=== PATIENT | male | born 1965 ===

== ENCOUNTER 2017-08-13 11:24 | Emergency (ER) | payer MEDICAID, OTHER ==
--- NOTE | 2017-08-13 12:05 | C.PDOC ---
History Of Present Illness <Brooklynn Avina - Last Filed: 08/13/17 19:04> <Caleb Goodwin - Last Filed: 08/13/17 20:31> 51 y/o male with PMHx of herniated discs brought in by ambulance for evaluation of acute exacerbation of chronic lower back pain since 08/03/17. Patient reports having herniated discs for many years and is s/p spinal tap in 2015 to drain fluid. Today patient complains of lower back pain radiating to the bilateral groin. States he normally has intermittent back pain, but current episode has been progressively worsening for the past 4-5 days. He awoke today with new onset of complete numbness to the bilateral lower legs from the waist down. Reports he poked himself with a needle and I dont feel a thing. Patient has no sensation of bladder fullness. States he is unable to move, sit up, or walk due to severe pain. Otherwise patient denies recent trauma. He tried taking Tylenol and using OTC topical pain patch, with no improvement. EXAM MOD DIST NONTOXIC BACK NO FOCAL TEND ATRAUM. LIMITED ROM DUE TO SEVERE PAIN EXT ATRAUM NEURO LIMITED DUE TO PAIN. +B/L PATELLA REFLEX. NO FOCLA MOTOR DEF RECTAL +FIRM RECTAL TONE, NO GROSS PARESTHESIA MDM ACUTE ON CHRONIC LUMBAR RADICULOPATHY, NEW ONSET PARESTHESIA AND POSSIBLE BLADDER RETENTION. RO CORD COMPRESSION. ps prev TOLERATED MRI WO DIFF (Brooklynn Avina) History Per: Patient History/Exam Limitations: no limitations Onset/Duration Of Symptoms: Days Current Symptoms Are (Timing): Worse Previous Symptoms: Back Pain (herniatic discs) Associated Symptoms: New Weakness, New Numbness Additional History Per: EMS <Brooklynn Avina - Last Filed: 08/13/17 19:04> <Caleb Goodwin - Last Filed: 08/13/17 20:31> Time Seen by Provider: 08/13/17 11:43 Chief Complaint (Nursing): Weakness/Neurological Deficit Past Medical History Reviewed: Historical Data, Nursing Documentation, Vital Signs - Medical History PMH: Arthritis, HTN, Migraine Denies: Chronic Kidney Disease Family History: States: Unknown Family Hx - Social History Hx Tobacco Use: No Hx Alcohol Use: No Hx Substance Use: No - Immunization History Hx Tetanus Toxoid Vaccination: Yes Hx Influenza Vaccination: Yes Hx Pneumococcal Vaccination: Yes <Brooklynn Avina - Last Filed: 08/13/17 19:04> Vital Signs: Last Vital Signs Temp 98.2 F 08/13/17 19:59 Pulse 62 08/13/17 19:59 Resp 18 08/13/17 19:59 BP 113/51 L 08/13/17 19:59 Pulse Ox 100 08/13/17 19:59 - [facility] Procedures CYSTOMETROGRAM (09/08/14) CYSTOSCOPY NEC (09/08/14) Review Of Systems Except As Marked, All Systems Reviewed And Found Negative. Genitourinary: Negative for: Incontinence, Other (bladder fullness) Musculoskeletal: Positive for: Back Pain, Leg Pain Neurological: Positive for: Weakness (due to severe pain), Numbness (to bilateral legs from the waist down) <Brooklynn Avina Last Filed: 08/13/17 19:04> Physical Exam - Physical Exam Appears: Non-toxic, In Acute Distress (moderate) Skin: Normal Color, Warm, Dry Head: Atraumatic, Normacephalic Eye(s): bilateral: Normal Inspection, PERRL, EOMI Nose: Normal Oral Mucosa: Moist Neck: Normal ROM, No Midline Cervical Tenderness, No Paracervical Tenderness, Supple Chest: Symmetrical, No Deformity, No Tenderness Cardiovascular: Rhythm Regular, No Murmur Respiratory: Normal Breath Sounds, No Rales, No Rhonchi, No Wheezing Gastrointestinal/Abdominal: Soft, No Tenderness Rectal: Rectal Tone (+Firm rectal tone), Other (No gross paresthesia) Back: No Vertebral Tenderness (No focal tenderness), Decreased ROM (Limited ROM due to severe pain) Extremity: No Normal ROM (Limited due to pain), No Tenderness, No Deformity, No Swelling, Other (No evidence of trauma) Pulses: Left Dorsalis Pedis: Normal, Right Dorsalis Pedis: Normal Neurological/Psych: Oriented x3, Normal Speech, Normal Cranial Nerves (2-12 intact), Normal Reflexes (+ bilateral patella reflex), Other (No focal motor deficits) <Brooklynn Avina Last Filed: 08/13/17 19:04> ED Course And Treatment - Laboratory Results Result Diagrams: 08/13/17 12:51 08/13/17 12:51 O2 Sat by Pulse Oximetry: 97 (RA) Pulse Ox Interpretation: Normal - Other Rad XR LS SPINE X-Ray: Interpreted by Me, Viewed By Me Interpretation: No acute fracture or bony deformity - CT Scan/US CT Lumbar Spine Other Rad Studies (CT/US): Read By Radiologist, Radiology Report Reviewed CT/US Interpretation: Accession No. : [id number]. Patient Name / ID : OSIRIS SILVA / [id number]. Exam Date : 08/13/2017 15:23:48 ( Approved ). Study Comment : Sex / Age : M / 51Y. Creator : Kiera Esquivel. Dictator : Tony Givens MD. Fruit Inspector : Printed Circuit Designer : Tony Givens MD. Approver2 : Report Date : 08/13/2017 15:43:46. My Comment : . PROCEDURE: CT Lumbar Spine without contrast. HISTORY: SPINAL PAIN RO CORD COMPRESSION. COMPARISON: Lumbar spine MRI 09/08/2014. TECHNIQUE: Axial computed tomography images were obtained of the lumbar spine without the use of intravenous contrast. Coronal and sagittal reformatted images were created and reviewed. Radiation dose: Total exam DLP = 1634.42 mGy-cm. This CT exam was performed using one or more of the following dose reduction techniques: Automated exposure control, adjustment of the mA and/or kV according to patient size, and/or use of iterative reconstruction technique. FINDINGS: VERTEBRAE: Normal lordotic curvature is preserved. There is no fracture or spondylolisthesis appreciated. No destructive bony lesion either. Multilevel facet arthropathy appears mild, concentrated at the inferior lumbar spine. Vertebral body and disc interspace heights are normal with exception of L4-5 and L5-S1 discs which are mildly diminished in height. CT appearance of the prevertebral paraspinal soft tissues diffusely unremarkable. DISCS/SPINAL CANAL /NEURAL FORAMINA: L1-2: Limited generalized disc bulging encroaches lateral recesses mildly without significant generalized central canal stenosis occurring. No neural foraminal stenosis either. L2-3: Mild generalized disc bulging flattens the ventral thecal sac and causes some mild central canal stenosis in the interval without significant neural foramina stenosis bilaterally. L3-4: There is now niyn-gw-njldsngn central canal stenosis due to increased generalized disc bulging and facet arthropathy symmetrically. Mild bilateral neural foraminal stenosis also occurs in the interval. L4-5: There is further increased disc bulging at this level with a small central disc herniation combined with facet joint degenerative changes to result in a severe central canal stenosis and moderate bilateral neural foraminal stenoses. L5-S1 : Limited disc bulging is appreciated without generalized central canal stenosis resulting. Combination of facet joint degenerative changes with disc bulge however results in mild bilateral neural foraminal stenoses. PARASPINAL SOFT TISSUES: Unremarkable. OTHER FINDINGS: None. IMPRESSION: 1. Interval severe stenosis L4-5 caused by a small central disc herniation overlying increasing disc bulging and facet joint degenerative arthropathy. 2. Mild-to- moderate L3-4 central stenosis caused by increasing disc bulging and facet joint degenerative arthropathy without obvious disc herniation. 3. Multilevel neural foraminal stenoses mildly increased in the interval with new but mild central stenosis identified at L2-3. CT Thoracic Spine Other Rad Studies (CT/US): Read By Radiologist, Radiology Report Reviewed CT/US Interpretation: Accession No. : [id number]. Patient Name / ID : OSIRIS SILVA / [id number]. Exam Date : 08/13/2017 15:19:45 ( Approved ). Study Comment : Sex / Age : M / 51Y. Creator : Kiear Esquivel. Dictator : Tony Givens MD. Fruit Inspector : Printed Circuit Designer : Tony Givens MD. Approver2 : Report Date : 08/13/2017 15:43:52. My Comment : . PROCEDURE: CT Thoracic Spine without contrast. HISTORY: BACK PAIN RO CORD COMPRESSION. COMPARISON: Thoracic spine MRI 08/31/2014. TECHNIQUE: Axial computed tomography images were obtained of the thoracic spine without intravenous contrast. Coronal and sagittal reformatted images were created and reviewed. Radiation dose: Total exam DLP = 1565.36 mGy-cm. This CT exam was performed using one or more of the following dose reduction techniques: Automated exposure control, adjustment of the mA and/or kV according to patient size, and/ or use of iterative reconstruction technique. FINDINGS: VERTEBRAE: Normal thoracic curvature with mild multilevel thoracic spondylosis. Minimal anterior wedging of T11 and T12 may indicate some element of potential anterior wedge compression fracture though likely chronic compare to prior thoracic spine MRI 08/31/2014. No destructive lesion identified throughout the thoracic spine. DISCS/SPINAL CANAL/NEURAL FORAMINA: There is no high-grade bony central canal stenosis appreciated. Similarly, the neural foramina appear adequately patent as far as cortical bony margins are concerned. Evaluation of soft tissues is far worse more superior in MRI than CT. No gross disc herniation is appreciable by standard CT criteria. Incidental note is made of variable limited mid cervical neural foraminal stenoses on degenerative basis at the mid to inferior cervical spine bilaterally. PARASPINAL SOFT TISSUES: Prevertebral paraspinal soft tissues appear diffusely unremarkable.. OTHER FINDINGS: Unremarkable. IMPRESSION: No high-grade bony central canal or neural foraminal stenosis throughout the thoracic spine or definite spondylolisthesis. Minimal possible chronic anterior wedge compression fractures of T11 and T12. <Brooklynn Avina - Last Filed: 08/13/17 19:04> - Laboratory Results Result Diagrams: 08/13/17 12:51 08/13/17 12:51 <Caleb Goodwin - Last Filed: 08/13/17 20:31> Progress - Data Reviewed Data Reviewed: Lab, Diagnostic imaging, Old records - Continuity of Care Discussed patient case with:: Patient, On-call PMD-pt unassigned Discussed pt. case with career development consultant/specialty: Neurological Surgery, Neurology <Brooklynn Avina - Last Filed: 08/13/17 19:04> <Caleb Goodwin - Last Filed: 08/13/17 20:31> - Re-Evaluation Re-evaluation Note: 08/13/17 12:42 BLADDER SCAN AVG 140 CC. PT REQUESTING THOMAS 08/13/17 14:02 PS NOW HO CLAUSTROPHOBIA. PT DENIED THIS DURING INITIAL EVALUATION. PT AGREES FOR MRI W ATIVAN. LAYING ON LEFT SIDE, LIMITED ROM. HOLD DILAUDID PENDING MRI. 08/13/17 15:03 INFORMED BY MRI THAT PT DOES NOT FIT MACHINE. UNABLE TO PERFORM TEST. WILL CT 08/13/17 15:07 D/W DR AMARAL NEURO LOG MANAGER AWARE OF ER FINDINGS. RECOMMENDS CT THORACIC, LUMBAR SPINE , DEXAMETHASONE 10 MG TID. 08/13/17 16:25 ct report reviewed, d/w dr amaral 08/13/17 16:34 PER PAIN, EXAM UNCH FROM INITIAL. VSS. D/W DR MEJIA AWARE OF ER FINDINGS. REQUESTS D/W NEUROSURG LOG MANAGER PRIOR TO DISPO. PENDING CALLBACK DR RUIZ NEUROSURG LOG MANAGER 08/13/17 16:54 D/W DR RUIZ STATES DOES NOT RECOMMEND ADMISSION @ [facility], UNABLE TO MANAGE WITHOUT MRI. NEEDS TRANSFER TO FACILITY W OPEN MRI. 08/13/17 17:23 SP UO 200 CC, 60 CC RESIDUAL 08/13/17 17:34 - D/W VIOLA Encarnacion.Rossi @ [facility] ER. STATES NO PRIOR RECORD OF PT @ [place], FACILITY DOES NOT HAVE OPEN MRI - NO OPEN MRI [facility], [facility] D/W DR WRIGHT ER ADMIN AWARE OF ER FINDINGS 08/13/17 18:18 SP CALEB AMARAL, STATES WILL D/W DR RUIZ 08/13/17 19:[address] AMARAL, ACCEPTED BY DR GARCIA FOR TRANSFER TO [place]. PER RYLAN TAPIA, NO KETAMINE GIVEN. PT STABLE ON L LAT POSITION (Brooklynn Avina) Signed over @7pm, pending transfer for Cauda equina syndrome. Patient examined: Morbidly obese and in NAD @1930: Patient c/o pain, given Morphine @20:00- given Decadron Transferred papaer work completed @2024: ALS picked up patient for transfer (Caleb Goodwin) Medical Decision Making <Brooklynn Avina - Last Filed: 08/13/17 19:04> <Caleb Goodwin - Last Filed: 08/13/17 20:31> Medical Decision Making: Initial Impression: Acute on chronic lumbar radiculopathy, new-onset paresthesia and possible bladder retention, r/o cord compression Time: 12:06 Initial Plan: --CMP --UDS --CBC --PTT --PT --X-ray lumbar spine --MRI Lumbar Spine --Decadron 10 mg IVP --Dilaudid 0.5 mg IVP --Neurontin 300 mg PO --Toradol 30 mg IVP --Zofran 8 mg IVP (Brooklynn Avina) Disposition Counseled Patient/Family Regarding: Studies Performed, Diagnosis - Disposition Disposition Time: 19:00 <Brooklynn Avina - Last Filed: 08/13/17 19:04> <Caleb Goodwin - Last Filed: 08/13/17 20:31> - Disposition Disposition: Trans to Other Acute Care Hosp Condition: STABLE Forms: [employer] (Ukrainian) - Clinical Impression Clinical Impression: Paresthesia of both lower extremities, Spinal stenosis, Lumbar herniated disc - Scribe Statement The provider has reviewed the documentation as recorded by the Scribe (Shelby Stroud) <Brooklynn Avina - Last Filed: 08/13/17 19:04> <Caleb Goodwin - Last Filed: 08/13/17 20:31> - Scribe Statement Provider Attestation: All medical record entries made by the Scribe were at my direction and personally dictated by me. I have reviewed the chart and agree that the record accurately reflects my personal performance of the history, physical exam, medical decision making, and the department course for this patient. I have also personally directed, reviewed, and agree with the discharge instructions and disposition. (Brooklynn Avina) Physician Patient Turnover Patient Signed Over To: Caleb Goodwin Handoff Comments: fu dispo <Brooklynn Avina - Last Filed: 08/13/17 19:04>
[2017-08-13] MEDS ORDERED: HYDROmorphone 0.5 mg/0.5 ml ISec IVP STA (12:06)
[2017-08-13 12:58] LABS: BASO % 0.7 % (0.0-2.0); EOS # 0.2 K/uL (0.0-0.7); EOS % 3.8 % (0.0-4.0); HEMOGLOBIN 15.1 g/dL (12.0-18.0); LYMPH # 1.2 K/uL (1.0-4.3); LYMPH % 20.8 % (20.0-40.0); MEAN CELL VOLUME 93.5 fL (80.0-94.0); MEAN CORPUSCULAR HEMOGLOBIN 32.5 pg (27.0-31.0); MEAN CORPUSCULAR HGB CONC 34.8 g/dL (33.0-37.0); MEAN PLATELET VOLUME 7.4 fL (7.2-11.7); MONO # 0.5 K/uL (0.0-0.8); MONO % 8.1 % (0.0-10.0); NEUT # 3.9 K/uL (1.8-7.0); NEUT % 66.6 % (50.0-75.0); NRBC % 0.1 % (0.0-2.0); RBC 4.66 Mil/uL (4.40-5.90); RED CELL DISTRIBUTION WIDTH 13.8 % (11.5-14.5); WHITE BLOOD COUNT 5.8 K/uL (4.8-10.8)
[2017-08-13 13:06] LABS: INR 1.1; PROTHROMBIN TIME 11.5 SECONDS (9.7-12.2)
[2017-08-13 13:22] LABS: ALB/GLOB RATIO 1.2 (1.0-2.1); ALBUMIN 4.6 g/dL (3.5-5.0); ALT/SGPT 41 U/L (21-72); AST/SGOT 65 U/L (17-59); BLOOD UREA NITROGEN 20 mg/dL (9-20); CALCIUM 9.5 mg/dl (8.6-10.4); GFR AFRICAN-AMERICAN > 60; GFR NON-AFRICAN AMERICAN > 60
[2017-08-13 14:34] LABS: BARBITURATES, UR NEGATIVE (NEGATIVE); BENZODIAZEPINES, UR NEGATIVE (NEGATIVE); OPIATES, UR NEGATIVE (NEGATIVE); PHENCYCLIDINE, UR NEGATIVE (NEGATIVE)
--- NOTE | 2017-08-13 15:36 | RAD ---
PROCEDURE: Radiographs of the Lumbar Spine. HISTORY: PAIN COMPARISON: No prior. FINDINGS: BONES: Borderline retrolisthesis of L5-S1 with the curvature otherwise unremarkable throughout the lumbar spine. Diffuse mild multilevel thoracolumbar spondylosis appreciate without fracture or other destructive bony process appreciable. Pedicles appear unremarkable as imaged. Local soft tissues are also grossly nonfocal. DISC SPACES: Marked L5-S1 intervertebral disc height loss indicates degenerative disease relatively advanced here on top of multilevel spondylosis as additional degenerated discs findings. OTHER FINDINGS: None. IMPRESSION: Marginal L5-S1 spondylolisthesis possible. No fracture appreciable throughout in the images submitted. Multilevel spondylosis appears mild involving the inferior thoracolumbar spine diffusely.
--- NOTE | 2017-08-13 15:53 | CT ---
PROCEDURE: CT Thoracic Spine without contrast HISTORY: BACK PAIN RO CORD COMPRESSION COMPARISON: Thoracic spine MRI 08/31/2014. TECHNIQUE: Axial computed tomography images were obtained of the thoracic spine without intravenous contrast. Coronal and sagittal reformatted images were created and reviewed. Radiation dose: Total exam DLP = 1565.36 mGy-cm. This CT exam was performed using one or more of the following dose reduction techniques: Automated exposure control, adjustment of the mA and/or kV according to patient size, and/or use of iterative reconstruction technique. FINDINGS: VERTEBRAE: Normal thoracic curvature with mild multilevel thoracic spondylosis. Minimal anterior wedging of T11 and T12 may indicate some element of potential anterior wedge compression fracture though likely chronic compare to prior thoracic spine MRI 08/31/2014. No destructive lesion identified throughout the thoracic spine. DISCS/SPINAL CANAL/NEURAL FORAMINA: There is no high-grade bony central canal stenosis appreciated. Similarly, the neural foramina appear adequately patent as far as cortical bony margins are concerned. Evaluation of soft tissues is far worse more superior in MRI than CT. No gross disc herniation is appreciable by standard CT criteria. Incidental note is made of variable limited mid cervical neural foraminal stenoses on degenerative basis at the mid to inferior cervical spine bilaterally. PARASPINAL SOFT TISSUES: Prevertebral paraspinal soft tissues appear diffusely unremarkable.. OTHER FINDINGS: Unremarkable. IMPRESSION: No high-grade bony central canal or neural foraminal stenosis throughout the thoracic spine or definite spondylolisthesis. Minimal possible chronic anterior wedge compression fractures of T11 and T12.
--- NOTE | 2017-08-13 16:05 | CT ---
PROCEDURE: CT Lumbar Spine without contrast HISTORY: SPINAL PAIN RO CORD COMPRESSION. COMPARISON: Lumbar spine MRI 09/08/2014. TECHNIQUE: Axial computed tomography images were obtained of the lumbar spine without the use of intravenous contrast. Coronal and sagittal reformatted images were created and reviewed. Radiation dose: Total exam DLP = 1634.42 mGy-cm. This CT exam was performed using one or more of the following dose reduction techniques: Automated exposure control, adjustment of the mA and/or kV according to patient size, and/or use of iterative reconstruction technique. FINDINGS: VERTEBRAE: Normal lordotic curvature is preserved. There is no fracture or spondylolisthesis appreciated. No destructive bony lesion either. Multilevel facet arthropathy appears mild, concentrated at the inferior lumbar spine. Vertebral body and disc interspace heights are normal with exception of L4-5 and L5-S1 discs which are mildly diminished in height. CT appearance of the prevertebral paraspinal soft tissues diffusely unremarkable. DISCS/SPINAL CANAL/NEURAL FORAMINA: L1-2: Limited generalized disc bulging encroaches lateral recesses mildly without significant generalized central canal stenosis occurring. No neural foraminal stenosis either. L2-3: Mild generalized disc bulging flattens the ventral thecal sac and causes some mild central canal stenosis in the interval without significant neural foramina stenosis bilaterally. L3-4: There is now dnoc-br-[id number] central canal stenosis due to increased generalized disc bulging and facet arthropathy symmetrically. Mild bilateral neural foraminal stenosis also occurs in the interval. L4-5: There is further increased disc bulging at this level with a small central disc herniation combined with facet joint degenerative changes to result in a severe central canal stenosis and moderate bilateral neural foraminal stenoses. L5-S1: Limited disc bulging is appreciated without generalized central canal stenosis resulting. Combination of facet joint degenerative changes with disc bulge however results in mild bilateral neural foraminal stenoses. PARASPINAL SOFT TISSUES: Unremarkable. OTHER FINDINGS: None. IMPRESSION: 1. Interval severe stenosis L4-5 caused by a small central disc herniation overlying increasing disc bulging and facet joint degenerative arthropathy. 2. Uktf-[id number]-[id number] L3-4 central stenosis caused by increasing disc bulging and facet joint degenerative arthropathy without obvious disc herniation. 3. Multilevel neural foraminal stenoses mildly increased in the interval with new but mild central stenosis identified at L2-3.
[2017-08-13] MEDS ORDERED: Ketamine 50 mg/ml Inj (10 ml) IV ONE (16:38)
[2017-08-13 18:45] VITALS: RESP 18
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
--- NOTE | 2017-08-13 19:06 | CP.PCM.PN ---
Subjective - Date & Time of Evaluation Date of Evaluation: 08/13/17 Time of Evaluation: 19:00 - Subjective Subjective: called earlier by Dr Avina then by Dr Moulton about patient I told Dr Avina that in this day and age considering surgery based on a CT of the L-spine is both dangerous and below the standard of care. Given his change in neuro status operating off an old MRI would be inappropriate. I told her to emergently transfer to an institution where they could obtain a proper study and then be operated on if the study so suggests. I then repeated this to Dr Moulton . He was in agreement Objective - Vital Signs/Intake and Output Vital Signs (last 24 hours): Temp Pulse Resp BP Pulse Ox 98.3 F 56 L 18 118/49 L 97 08/13/17 18:19 08/13/17 18:45 08/13/17 18:45 08/13/17 18:45 08/13/17 18:48 Intake and Output: 08/13/17 08/14/17 18:59 06:59 Output Total 200 Balance -200 - Medications Medications: Current Medications Dexamethasone (Decadron Inj) 10 mg IVP ONCE ONE Stop: 08/13/17 20:01 - Labs Labs: 08/13/17 12:51 08/13/17 12:51 PT 11.5 SECONDS (9.7-12.2) 08/13/17 12:51 INR 1.1 08/13/17 12:51 APTT 32 SECONDS (21-34) 08/13/17 12:51
[2017-08-13 20:01] VITALS: BP 113/51; PULSE 62; TEMP 98.2; O2SAT 100
== END 2017-08-13 20:17 | disposition short-term general hospital (02) ==
LOC: C.ER 11:24
DX: R20.2 Paresthesia of skin (principal); M48.061 Spinal stenosis, lumbar region without neurogenic claudication; M51.26 Other intervertebral disc displacement, lumbar region; I10 Essential (primary) hypertension
CPT/HCPCS: 72100; 72128; 72131; 80053; 80324; 80345; 80346; 80349; 80353; 80358; 80361; 83992; 85025; 85610; 85730; 96374; 96375; 96376; 99285; J1100; J1885; J2060; J2270; J2405